=== PATIENT | male | born 1990 | race Caucasian/White ===

== ENCOUNTER 2024-11-12 08:23 | Emergency (ER) | payer BC, SELFPAY ==
[2024-11-12 08:29] VITALS: BP 149/91; PULSE 82; TEMP 36.9; O2SAT 98; BMI 24.8
--- OUTSIDE RECORDS SUMMARY | 2024-11-12 08:37 | XMS_ITS | Clinical Summary ---
Author Organization [facility] Address [address] [place] [address] Care Team Providers Care Ballistics Expert Forensic Name Role Phone Jose Angel Chen MD Primary Care Provider [phone] Allergies No known active allergies Medications No known medications Active Problems No known active problems Family History Medical History Relation Name Comments Brain cancer Father Heart disease Mother Stroke Mother Relation Name Status Comments Father Mother Social History Tobacco Use Types Packs/Day Years Used Date Smoking Tobacco: Never Passive Smoke Exposure: Never Smokeless Tobacco: Never Tobacco Cessation:Counseling Given: Yes Alcohol Use Standard Drinks/Week Comments Yes 2 (1 standard drink = 0.6 oz pur e alcohol) Sex and Gender Information Value Date Recorded Sex Assigned at Not on file Legal Sex Male 11:03 AM EDT Gender Identity Not on file Sexual Orientation Not on file Last Filed Vital Signs Vital Sign Reading Time Taken Comments Blood Pressure 125/82 04/08/2024 2:35 PM EST Pulse 76 04/08/2024 2:35 PM EST Temperature - - Respiratory Rate 18 10/09/2023 2:03 PM EDT Oxygen Saturation - - Inhaled Oxygen Concentration - - Weight 73.9 kg (163 lb) 04/08/2024 2:35 PM EST Height 172.7 cm (5' 8 ) 04/08/2024 2:35 PM EST Body Mass Index 24.78 04/08/2024 2:35 PM EST Plan of Treatment Health Maintenance Due Date Last Done Comments Influenza Vaccine (#1) 2024 Insurance BCBS Care Teams Ballistics Expert Forensic Relationship Specialty Start Date End Date Jose Angel Chen MD [address] [place] [address] PCP - General Family Medicine 09/18/23
--- NOTE | 2024-11-12 08:38 | ED_ITS ---
HPI - Chest Pain General Chief Complaint: Chest Pain Stated Complaint: CHEST PRESSURE LAST NIGHT, HEART PALPITATIONS Time Seen by Provider: 11/12/24 08:33 Source: patient Mode of arrival: walk-in Limitations: no limitations History of Present Illness HPI narrative: I had the patient 34-year-old male with a past medical history of asthma although he does not use his inhaler except for rarely, the patient is coming to the ER with a concern of chest pain that was yesterday around 8 or 9 PM when he was with his friends, patient mentioned that the pain was retrosternal and was exacerbated with taking a deep breath and was there for few seconds. After that the patient did had a feeling of heart racing. The patient mentioned that he have a family history of coronary artery disease with his grandfather of coronary artery disease at the age of 52 and also his brother have A-fib The patient admits that he vape and he also drink energy drink occasionally Denies any drug use Patient mentioned that his exercise mostly limited to 20 minutes of walk with his dog but he never had any chest pain similar to this before Patient since this incident has been pain-free He mentioned that he measured his blood pressure twice yesterday and it was 150 and 160 systolic Related Data Home Medications ?Medication ?Instructions ?Recorded ?Confirmed albuterol 90 mcg/actuation aerosol 90 mcg inhalation . q4hr PRN 11/12/24 11/12/24 inhaler shortness of breath or wheez ing Allergies Allergy/AdvReac Type Severity Reaction Status Date / Time No Known Drug Allergies Allergy Verified 11/12/24 08:29 Review of Systems ROS Status of ROS 10 or more systems reviewed and unremark able except as noted in history and below PFSH PFSH Social History Little interest or pleasure in doing things: not at all Feeling down, depressed, or hopeless: not at all Exam Narrative Exam Narrative: Nurses notes and vital signs reviewed and patient is not hypoxic. General: Well-appearing and in no apparent distress. Skin: Warm, dry, no pallor noted. No rash. Head: Normocephalic, atraumatic. Neck: Supple, non-tender. Cardiovascular: Regular Rate and Rhythm without murmur, gallop or rub. Respiratory: No accessory muscle use or respiratory distress. Lungs are clear to auscultation, no wheezing, rales or rhonchi Chest Wall: no tenderness Back: No midline thoracic or lumbar vertebral tenderness. No CVA tenderness Musculoskeletal: normal ROM, no calf or popliteal tenderness, no lower extremity edema/swelling GI: Abdomen is soft, non-distended. Normal bowel sounds. No masses appreciated. No tenderness to palpation. No rebound, guarding, or rigidity noted. Neurological: A&O x4. No cranial nerve dysfunction observed. No truncal ataxia. Moves all extremities. Sensation intact. Psychiatric: Cooperative and interactive. Normal mood and affect. Constitutional Vital Signs, click to edit/add: Last Vital Signs Temp 98.5 F 11/12/24 08:29 Pulse 82 11/12/24 08:29 Resp 18 11/12/24 08:29 BP 149/91 H 11/12/24 08:29 Pulse Ox 98 11/12/24 08:29 O2 Del Method Room Air 11/12/24 08:29 Course Vital Signs Vital signs: Vital Signs Temperature 98.5 F 11/12/24 08:29 Pulse Rate 82 11/12/24 08:29 Respiratory Rate 18 11/12/24 08:29 Blood Pressure 149/91 H 11/12/24 08:29 Pulse Oximetry 98 11/12/24 08:29 Oxygen Delivery Method Room Air 11/12/24 08:29 Temperature 98.5 F 11/12/24 08:29 Pulse Rate 82 11/12/24 08:29 Respiratory Rate 18 11/12/24 08:29 Blood Pressure 149/91 H 11/12/24 08:29 Pulse Oximetry 98 11/12/24 08:29 Oxygen Delivery Method Room Air 11/12/24 08:29 MDM - Chest Pain MDM Narrative Medical decision making narrative: The patient EKG showing sinus rhythm with a heart rate of [address] elevation or depression Chest x-ray showed no acute pathology CBC and chemistry were within normal Troponin is negative The patient presentation mostly secondary to atypical chest pain as it was pleuritic in nature and it was there whenever he take a deep breath. Also could be secondary to costochondritis. The patient does have risk factor and I did explain to him the harmful effect of the energy drinks and vaping on his health Patient is pain-free still and he is discharged to follow-up with his primary care The patient is to follow up with primary care physician in next 2-3 days or to return to the emergency department should any of the signs or symptoms worsen or new symptoms develop. The patient agrees with the following Diagnosis and Treatment plan and the patient will be discharged home. Lab Data Labs: Lab Results 11/12/24 Range/Units 08:34 WBC 7.5 (4.0-11.0) 10^3/uL RBC 5.06 (4.70-6.10) 10^6/uL Hgb 15.2 (14.0-18.0) g/dL Hct 42.7 (42.0-54.0) % MCV 84.4 (80.0-94.0) fL MCH 30.0 (25.9-34.0) pg MCHC 35.6 H (29.9-35.2) g/dL RDW 11.8 (11.0-15.0) % Plt Count 260 (150-450) 10^3/uL MPV 10.6 (9.5-13.5) fL Neut % (Auto) 57.3 (43.0-75.0) % Lymph % (Auto) 32.2 (20.5-60.0) % [place] % (Auto) 9.0 (1.7-12.0) % Eos % (Auto) 1.1 (0.9-7.0) % Baso % (Auto) 0.3 (0.2-2.0) % Neut # (Auto) 4.3 (1.4-6.5) 10^3/uL Lymph # (Auto) 2.4 (1.2-3.8) 10^3/uL [place] # (Auto) 0.7 (0.3-0.8) 10^3/uL Eos # (Auto) 0.1 (0.0-0.7) 10^3/uL Baso # (Auto) 0.0 (0.0-0.1) 10^3/uL Abs Immat Gran (auto) 0.01 (0.00-0.03) 10^3/uL Imm/Tot Granulo (auto) 0.1 (0.0-0.5) % PT 11.0 (9.0-11.6) sec INR 1.04 Sodium 140 (136-145) mmol/L Potassium 3.5 (3.5-5.1) mmol/L Chloride 102 (98-107) mmol/L Carbon Dioxide 26.0 (21.0-32.0) mmol/L Anion Gap 15.5 BUN 13.0 (7.0-18.0) mg/dL Creatinine 0.89 (0.70-1.30) mg/dL Est GFR ( Amer) >60 (>=60 mL/min/1.73m^2) Est GFR (Non-Af Amer) >60 (>=60 mL/min/1.73m^2) BUN/Creatinine Ratio 14.6 Glucose 95 (74-106) mg/dL Calcium 9.4 (8.5-10.1) mg/dL Total Bilirubin 1.6 H (0.2-1.0) mg/dL AST 17 (15-37) U/L ALT 31 (16-63) U/L Alkaline Phosphatase 74 (46-116) U/L Troponin I High Sens 5.1 (4.0-76.1) pg/mL Total Protein 8.1 (6.4-8.2) g/dL Albumin 4.4 (3.4-5.0) g/dL Globulin 3.7 g/dL Albumin/Globulin Ratio 1.2 Discharge Plan Discharge Chief Complaint: Chest Pain Clinical Impression: Atypical chest pain Patient Disposition: Home, Self-Care Time of Disposition Decision: 09:32 Condition: Good Mode of Transportation: Private Vehicle Prescriptions / Home Meds: No Action albuterol 90 mcg/actuation aerosol 90 mcg inhalation .q4hr PRN (Reason: shortness of breath or wheezing) Print Language: Moldovan Instructions: Chest Pain (ED), Chest Wall Pain (ED) Referrals: CLAU MENENDEZ [Primary Care Provider, Family Practice] - 1 week Discharge Date/Time: 11/12/24 09:38
--- NOTE | 2024-11-12 08:38 | ECG_ITS ---
The [facility] Test Date: 2024-11-12 Pat Name: ZOEY SHEPARD Department: Room: - Gender: Male Retail Marketing Coordinator: : 1990 Requested By: Order Number: [id number] Reading MD: DEBBIE COLINDRES Measurements Intervals [place] Rate: 76 P: 81 WI: 152 QRS: 92 QRSD: 118 T: 73 QT: 380 QTc: 410 Interpretive Statements 1100 Sinus rhythm 2320 Nonspecific intraventricular conduction delay 7102 Moderate right axis deviation 9130 borderline ECG No previous ECG available for comparison Electronically Signed On 11-15-2024 16:41:33 EDT by DEBBIE COLINDRES
--- NOTE | 2024-11-12 08:38 | XR_ITS ---
The [address] [address] Patient Name: ZOEY SHEPARD MRN: [id number] date: 1990 Sex: M Assigned Patient Location: ER Current Patient Location: ER Accession/Order Number: [id number] Exam Date: 11/12/2024 08:50 Report Date: 11/12/2024 09:04 At the request of: CHARMAINE MONTAGUE MD Procedure: XR chest 1V PORTABLE AP ERECT CHEST 0855 hours CLINICAL HISTORY: Episode of chest pain last night. COMPARISON: None The heart is within normal limits. There is no vascular congestion. No consolidation is visualized. There is no effusion or pneumothorax. The osseous structures are intact. XR/XR chest 1V IMPRESSION: NO ACUTE FINDINGS Impression dictated by: Maren Mosquera M.D. 11/12/2024 9:04 AM Dictation Location: [place] [address] Electronically authenticated by: [id number] Y Date: 11/12/2024 09:04
[2024-11-12 08:44] LABS: Hematocrit 42.7 % (42.0-54.0); Hemoglobin 15.2 g/dL (14.0-18.0); Immature Granulocytes Abs Auto 0.01 10^3/uL (0.00-0.03); Immature Granulocytes Pct Auto 0.1 % (0.0-0.5); Lymphocytes Absolute Auto 2.4 10^3/uL (1.2-3.8); Mean Corpuscular HGB Conc 35.6 g/dL (29.9-35.2); Mean Corpuscular Hemoglobin 30.0 pg (25.9-34.0); Mean Corpuscular Volume 84.4 fL (80.0-94.0); Platelet Count 260 10^3/uL (150-450); Red Blood Count 5.06 10^6/uL (4.70-6.10); White Blood Count 7.5 10^3/uL (4.0-11.0)
[2024-11-12 09:00] LABS: Alanine Aminotransferase 31 U/L (16-63); Albumin Globulin Ratio 1.2; Albumin Level 4.4 g/dL (3.4-5.0); Alkaline Phosphatase 74 U/L (46-116); Anion Gap 15.5; Aspartate Amino Transferase 17 U/L (15-37); Blood Urea Nitrogen 13.0 mg/dL (7.0-18.0); Calcium 9.4 mg/dL (8.5-10.1); Carbon Dioxide 26.0 mmol/L (21.0-32.0); Chloride 102 mmol/L (98-107); Estimated GFR (African America >60 (>=60 mL/min/1.73m^2); Estimated GFR (Non-African Ame >60 (>=60 mL/min/1.73m^2); Globulin 3.7 g/dL; Glucose 95 mg/dL (74-106); Potassium 3.5 mmol/L (3.5-5.1); Sodium 140 mmol/L (136-145); Total Protein 8.1 g/dL (6.4-8.2)
[2024-11-12 09:01] LABS: INR 1.04; Prothrombin Time 11.0 sec (9.0-11.6)
== END 2024-11-12 09:38 | disposition home or self-care (01) ==
PROVIDERS: Emergency Provider Emergency Medicine; PCP Family Medicine
DX: R07.89 Other chest pain (principal); J45.909 Unspecified asthma, uncomplicated; F17.290 Nicotine dependence, other tobacco product, uncomplicated
CPT/HCPCS: 36415; 71045; 80053; 80307; 84484; 85025; 85610; 93005; 99285